=== PATIENT | male | born 1990 | race Caucasian/White ===

== ENCOUNTER 2022-03-27 08:49 | Emergency (ER) | payer MEDICAID, SELFPAY ==
--- NOTE | 2022-03-27 08:56 | ED.GENADULT ---
HPI - General Adult General Chief complaint: Upper Respiratory Symptoms Stated complaint: coughing, chest congestion Time Seen by Provider: 03/27/22 08:55 Source: patient Mode of arrival: ambulatory Limitations: no limitations History of Present Illness HPI narrative: Patient is a 31 year old assigned male at with a history of asthma presenting to the emergency department today with a cough and congestion over the last few days. Patient states that over the last few days he has had to use his inhaler and he has had a cough and mild nasal congestion. Patient denies any dizziness, lightheadedness, abdominal pain, nausea, vomiting, fever, chills, blurry vision, double vision, loss of vision, chest pain, difficulty breathing, shortness of breath, back pain, night sweats, pain with urination, increased urinary frequency, increased urinary urgency, blood in his urine or stool, syncope or a near syncopal episode, recent trauma or falls, bowel incontinence, bladder incontinence, bowel retention, bladder retention, or any other complaints at this time. Onset (ago): day(s) Severity: mild Severity scale (1-10): 2 Relieving factors: none Exacerbating factors: none Associated symptoms: cough Treatments prior to arrival: none Related Data Previous Rx's Medication Instructions Recorded albuterol sulfate 90 mcg/actuation 1 inh inhalation QID PRN shortness 03/27/22 aerosol inhaler (Ventolin HFA) of breath or wheezing #8.5 grams benzonatate 100 mg capsule 100 mg PO BID PRN cough 7 days #14 03/27/22 caps prednisone 20 mg tablet 20 mg PO DAILY 7 days #7 tabs 03/27/22 Allergies Allergy/AdvReac Type Severity Reaction Status Date / Time shellfish derived Allergy Anaphylaxis Verified 03/27/22 08:59 Review of Systems Constitutional: Constitutional: Reports no additional constitutional complaints, Denies chills, Denies fever(s) and Denies night sweats Eyes: Eyes: Reports no additional eye complaints, Denies blurry vision, Denies change in vision, Denies diplopia, Denies eye discharge, Denies loss of vision and Denies eye pain ENT: Denies dizziness and Reports nasal congestion Cardiovascular: Cardiovascular: Reports no additional cardiovascular complaints, Denies chest pain, Denies lightheadedness, Denies Loss of Consciousness and Denies dyspnea Respiratory: Respiratory: Reports no additional respiratory complaints, Reports cough and Denies dyspnea Gastrointestinal: Gastrointestinal: Reports no additional gastrointestinal complaints, Denies abdominal pain, Denies melena, Denies hematochezia, Denies change in bowel habits and Denies change in stool character Genitourinary: Genitourinary: Reports no additional male genitourinary complaints, Denies hematuria, Denies oliguria, Denies difficulty urinating, Denies dysuria, Denies urinary frequency, Denies urinary hesitancy, Denies urinary incontinence and Denies urinary urgency Musculoskeletal: Musculoskeletal: Reports no additional musculoskeletal complaints, Denies numbness and Denies tingling Neurologic: Denies dizziness, Denies loss of vision, Denies numbness and Denies tingling Psychiatric: Psychiatric: Reports no additional psychiatric complaints Endocrine: Endocrine: Reports no additional endocrine complaints Hematologic/Lymphatic: Hematologic/Lymphatic: Reports no additional hematologic/lymphatic complaints Allergic/Immunologic: Allergic/Immunologic: Reports no additional allergic/immunologic complaints PMFSH Past Medical History Attestation statement: The following information was validated with the patient. Source: old records reviewed and nursing notes reviewed Social History Social History Advance Directives: No Advance Directives Information Provided: No Physical Exam ED Vital Signs: Vital Signs - 24 hr 03/27/22 09:02 Temperature 98.2 F Pulse Rate 90 Respiratory Rate 18 Blood Pressure 143/89 H Pulse Oximetry 97 Oxygen Delivery Method Room Air BMI result Body Mass Index 43.9 Const General: cooperative, no acute distress, alert and awake Nutritional Appearance: well nourished Orientation/consciousness: patient oriented x3 Limitations: no limitations [facility] Head: Yes normal to inspection and Yes atraumatic Ears: hearing grossly normal bilaterally and external ears normal General nose exam: Normal external nose present, no nasal discharge noted and no epistaxis Face and sinus: Yes normal facial exam, No abrasion and No laceration Mouth: Normal oral and palatal mucosa present, no drooling and no muffled voice Eyes General: appearance normal, both eyes and all related structures Periorbital: periorbital findings normal Eyelids: Yes eyelids normal Conjunctivae: conjunctivae normal Pupils: Equal, round and reactive pupils present EOM: EOMs intact bilaterally Neck Neck: Yes normal visual inspection, Yes full ROM and Yes no lymphadenopathy Chest Chest palpation & inspection: normal inspection of the chest Resp Effort & Inspection: normal respiratory effort and able to speak in complete sentences Auscultation: clear to auscultation bilaterally Cardio Rate: regular rate Rhythm: regular rhythm GI Inspection: Yes normal to inspection Neuro General: patient oriented x3 and moves all extremities Cranial nerves: Yes Equal, round and reactive pupils present Cognition (Neuro): normal cognition Motor exam (neuro): 5/5 motor strength present throughout Sensory Exam: Normal double simultaneous stimulation for sensation Coordination: [id number] test normal Extrem General: Yes normal to inspection, Yes full ROM and Yes capillary refill normal Psych Appearance: grossly normal Mental Status: mental status grossly normal Affect: normal affect Attitude: cooperative Thought process: Normal thought process present Thought content: Normal thought content present Insight: Good insight present (Psych) Medical Decision Making Medical Decision Making [facility] Narrative: Patient is a 31 year old assigned male at with a history of asthma presenting to the emergency department today with a cough. Patient's physical exam was unremarkable. Patient's COVID and Influenza swabs were negative. I explained my physical exam findings as well as all test results to the patient. I answered all questions asked by the patient. I stressed the importance of the patient taking his medication as prescribed. I stressed the importance of the patient following up with his primary care provider. I stressed the importance of the patient returning to the emergency department immediately if his symptoms were to worsen or if he were to develop any dizziness, shortness of breath, difficulty breathing, chest pain, blurry vision, loss of vision, nausea, vomiting, abdominal pain, fever, chills, back pain, or any other complaints. Patient verbalized agreement and understanding with this treatment plan and discharge. Differential Diagnosis Differential Diagnoses: The differential diagnosis associated with the presentation includes cough, viral illness Lab Data [facility] Lab Attestation statement: I reviewed the patient's lab results. Labs: Lab Results 03/27/22 03/27/22 Range/Units 09:31 09:31 COVID-19 ([facility]) Negative (Negative) COVID-19 Clin Com See Note Influenza Type A ([facility]) Negative (Negative) Influenza Type B ([facility]) Negative (Negative) Influenza A & B Note See Note Discharge Plan Discharge Clinical Impression: Upper respiratory infection Patient Disposition: Home, Self-Care Instructions: Upper Respiratory Infection (ED) Additional Instructions: Follow up with your primary care provider. Return to the emergency department immediately if your symptoms worsen or if you develop any dizziness, shortness of breath, difficulty breathing, chest pain, blurry vision, loss of vision, nausea, vomiting, abdominal pain, fever, chills, back pain, or any other complaints. Prescriptions: New benzonatate 100 mg capsule 100 mg PO BID PRN (Reason: cough) 7 Days Qty: 14 0RF prednisone 20 mg tablet 20 mg PO DAILY 7 Days Qty: 7 0RF albuterol sulfate [Ventolin HFA] 90 mcg/actuation HFA aerosol inhaler 1 inh inhalation QID PRN (Reason: shortness of breath or wheezing) Qty: 8.5 0RF Referrals: [facility] Family Medicine [Provider Group] (Call to establish and follow up with a primary care provider. If you already have a primary care provider, please follow up with them. ) [facility] [Provider Group] (Call to establish and follow up with a primary care provider. If you already have a primary care provider, please follow up with them. ) [facility] [Provider Group] (Call to establish and follow up with a primary care provider. If you already have a primary care provider, please follow up with them. ) Stand Alone Forms: Work/School Release Interventions: ED Discharge Assessment Last Done: 03/27/22 10:49 Discharge Date/Time: 03/27/22 10:49 Print Language: Nauruan
[2022-03-27 09:02] VITALS: BP 143/89; PULSE 90; RESP 18; TEMP 36.8; O2SAT 97; BMI 43.9
[2022-03-27 10:07] LABS: IDNOW Serial# BCCEAD1C; Influenza A Negative (Negative); Influenza B2 Negative (Negative)
[2022-03-27 10:28] LABS: COVID-19 Test Negative (Negative); IDNOW Serial# 55D5AD1C
== END 2022-03-27 10:49 | disposition home or self-care (01) ==
PROVIDERS: Physician Assistant Medical; Emergency Provider Emergency Medicine
DX: J06.9 Acute upper respiratory infection, unspecified (principal); Z20.822 Contact with and (suspected) exposure to COVID-19; J45.909 Unspecified asthma, uncomplicated
CPT/HCPCS: 87502; 87635; 99282; 99283

== ENCOUNTER 2022-09-23 04:17 | Emergency (ER) | payer OTHER, SELFPAY ==
[2022-09-23 04:19] VITALS: BP 149/78; PULSE 78; RESP 18; TEMP 36.4; O2SAT 96; BMI 46.6
[2022-09-23] MEDS: Lidocaine HCl 1 % MPF 5 ML VIAL SUBCUT (06:03)
--- NOTE | 2022-09-23 06:13 | ED.GENADULT ---
HPI - General Adult General Chief complaint: Wound/Laceration Stated complaint: Work Inj/Small hand lac Time Seen by Provider: 09/23/22 05:35 Source: patient Mode of arrival: ambulatory Limitations: no limitations History of Present Illness HPI narrative: 32-year-old male came in for evaluation of a splinter in the left palm while he was working. A wooden splinter penetrated the left hand patient was able to extract piece of it with imbedded piece in the palm. Related Data Previous Rx's Medication Instructions Recorded albuterol sulfate 90 mcg/actuation 1 inh inhalation QID PRN shortness 03/27/22 aerosol inhaler (Ventolin HFA) of breath or wheezing #8.5 grams benzonatate 100 mg capsule 100 mg PO BID PRN cough 7 days #14 03/27/22 caps prednisone 20 mg tablet 20 mg PO DAILY 7 days #7 tabs 03/27/22 Allergies Allergy/AdvReac Type Severity Reaction Status Date / Time shellfish derived Allergy Anaphylaxis Verified 03/27/22 08:59 Review of Systems Review of Systems: All other systems are reviewed and are negative Constitutional: Reports as per HPI and Reports no additional constitutional complaints Eyes: Reports as per HPI and Reports no additional eye complaints Reports system reviewed and no additional complaints, except as documented Cardiovascular: Reports as per HPI and Reports no additional cardiovascular complaints Respiratory: Reports as per HPI and Reports no additional respiratory complaints Gastrointestinal: Reports as per HPI and Reports no additional gastrointestinal complaints Genitourinary: Reports no additional female genitourinary complaints Musculoskeletal: Reports no additional musculoskeletal complaints Skin/Breast: Reports system reviewed and no additional complaints, except as docu Psychiatric: Reports no additional psychiatric complaints Endocrine: Reports no additional endocrine complaints Hematologic/Lymphatic: Reports no additional hematologic/lymphatic complaints Allergic/Immunologic: Reports no additional allergic/immunologic complaints Reports system reviewed and no additional complaints, except as documented and Reports Abnormal speech present [facility] Social History Social History Advance Directives: No Advance Directives Information Provided: Yes Physical Exam ED Vital Signs: Vital Signs - 24 hr 09/23/22 04:19 Temperature 97.6 F Pulse Rate 78 Respiratory Rate 18 Blood Pressure 149/78 H Pulse Oximetry 96 Oxygen Delivery Method Room Air BMI result Body Mass Index 46.6 Vital signs have been reviewed as appeared to be correct. Blood pressure normal. Heart rate normal. Respiration rate normal. Temperature normal. Oxygen saturation normal. Appearance: Alert. Oriented X3. No acute distress. Head: Normal external exam. Normocephalic. Atraumatic. No Phillip signs noted. No raccoon eyes noted Eyes: PERRLA. EOMI. Conjunctiva and sclera normal. Eyelids normal. ENT: TM's Normal. Pharynx normal. Uvula midline. Moist mucous membranes. No trismus noted. No drooling noted. No muffled voice noted. Neck: Normal inspection. Neck supple. FROM. No adenopathy. Thyroid Normal. No meningeal signs. No neck mass noted. CVS: Normal heart rate and rhythm. Heart sound normal. No murmurs noted. Pulses normal throughout. Respiratory: No respiratory distress. Painless inspiration. Breath sounds normal. No wheezes/rales/rhonchi noted. Chest nontender. No accessory muscle usage noted or decreased air movement noted. Abdomen: Soft and nontender. Bowel sounds normal in all 4 quadrants. No distention noted. No organomegaly noted. No visible injury noted. Back: No CVA tenderness. Full range of motion noted. Skin: Skin warm and dry. Normal skin color. Normal skin turgor. No rashes/lesions/lacerations noted. Extremities: Left hand palm: 1 cm long splinter embedded in the palmar aspect of the left hand. Neuro: Oriented X 3. Cranial nerve exam: II-XII are grossly intact No motor deficit. No sensory deficit. Reflexes normal. Medications Administered Discontinued Medications Generic Name Dose Route Start Last Admin Trade Name Freq PRN Reason Stop Dose Admin Lidocaine HCl 5 ml 09/23/22 05:50 09/23/22 06:03 Lidocaine Hcl 1 % Mpf 5 Ml Vial SUBCUT 09/23/22 05:51 5 ml ONCE ONE Administration Procedures Foreign Body Removal Time Out Performed: yes Site: left and hand Description of foreign body: other (Splinter) Technique: incision made to facilitate removal Confirmed by:: direct visualization Complications: none Post-procedure exam: awake, alert Neurovascular: normal distal pulse Medical Decision Making Differential Diagnosis Differential Diagnoses: The differential diagnosis associated with the presentation includes (Left hand foreign body, infection.) Admission/Observation Consideration of admission/observation: Escalation of care including admission/observation considered Discharge Plan Discharge Clinical Impression: Embedded wood splinter Patient Disposition: Home, Self-Care Instructions: Soft Tissue Foreign Body (ED) Prescriptions: No Action benzonatate 100 mg capsule 100 mg PO BID PRN (Reason: cough) 7 Days Qty: 14 0RF prednisone 20 mg tablet 20 mg PO DAILY 7 Days Qty: 7 0RF albuterol sulfate [Ventolin HFA] 90 mcg/actuation HFA aerosol inhaler 1 inh inhalation QID PRN (Reason: shortness of breath or wheezing) Qty: 8.5 0RF
[2022-09-23] MEDS: Bacitracin Oint 0.9 GM PACKET 1 APPL TOPICAL (06:17)
--- NOTE | 2022-09-23 06:23 | MHC.EDTECH ---
pt wound cleaned and irrigated, bacitracin applied and wound wrapped.
== END 2022-09-23 06:36 | disposition home or self-care (01) ==
PROVIDERS: Emergency Provider Emergency Medicine
DX: S61.442A Puncture wound with foreign body of left hand, initial encounter (principal); W45.8XXA Other foreign body or object entering through skin, initial encounter; Y93.9 Activity, unspecified; Y92.59 Other trade areas as the place of occurrence of the external cause; Y99.0 Civilian activity done for income or pay
CPT/HCPCS: 10120; 99282; 99284

== ENCOUNTER 2022-12-28 23:43 | Emergency (ER) | payer OTHER, SELFPAY ==
--- NOTE | 2022-12-28 | ECG_ITS ---
Test Reason : CP Blood Pressure : / mmHG Vent. Rate : 084 BPM Atrial Rate : 084 BPM P-R Int : 130 ms QRS Dur : 110 ms QT Int : 366 ms P-R-T Axes : 041 046 026 degrees QTc Int : 432 ms Normal sinus rhythm RSR' or QR pattern in V1 suggests right ventricular conduction delay Otherwise normal ECG No previous ECGs available Referred By: Generic ED Physician Electronically Signed By:MARIE JEAN MD
[2022-12-28 23:54] VITALS: BP 140/90; PULSE 84; RESP 18; O2SAT 98; BMI 48.4
[2022-12-28 23:56] VITALS: PULSE 87
[2022-12-28 23:58] VITALS: BP 139/85; PULSE 97; RESP 16; TEMP 36.7; O2SAT 97
--- NOTE | 2022-12-28 23:58 | ED.CHESTPAIN ---
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 With localized in mid chest sharp in character with no radiation no shortness of breath nonreproducible no diaphoresis no nausea no vomiting patient never had similar pain in the past no history of anxiety patient father had history of coronary disease at age of 65 patient denies any cocaine abuse Related Data Previous Rx's Medication Instructions Recorded albuterol sulfate 90 mcg/actuation 1 inh inhalation QID PRN shortness 03/27/22 aerosol inhaler (Ventolin HFA) of breath or wheezing #8.5 grams benzonatate 100 mg capsule 100 mg PO BID PRN cough 7 days #14 03/27/22 caps prednisone 20 mg tablet 20 mg PO DAILY 7 days #7 tabs 03/27/22 ibuprofen 600 mg tablet 600 mg PO Q6H PRN fever or pain 12/29/22 #30 tabs Allergies Allergy/AdvReac Type Severity Reaction Status Date / Time shellfish derived Allergy Anaphylaxis Verified 03/27/22 08:59 Review of Systems Review of Systems: Yes all other systems are reviewed and are negative [facility] Social History Social History Smoked in Last 30 Days: No Use of substances other than those prescribed or required for medical reasons: No Advance Directives: No Advance Directives Information Provided: No Physical Exam Vital Signs: Vital Signs: Last Vital Signs Temp 98.1 F 12/28/22 23:58 Pulse 97 12/28/22 23:58 Resp 16 12/28/22 23:58 BP 139/85 12/28/22 23:58 Pulse Ox 97 12/28/22 23:58 O2 Del Method Room Air 12/28/22 23:58 BMI result Body Mass Index 48.4 Appearance: Alert. Oriented X3. No acute distress. Eyes: PERRLA, ENT: Pharynx normal. Oral Mucosa moist Neck: Normal inspection. Neck supple. CVS: Normal heart rate and rhythm. Pulses normal. Respiratory: No respiratory distress. Equal air entry bilateral, no wheezing/rales/rhonchi Abdomen: Soft and nontender. Bowel sounds are present, no mass palpable, no CVA tenderness Skin: Skin warm and dry. Normal skin color. Normal skin turgor. Extremities: No lower extremity edema. No calf tenderness Neuro: Oriented X 3. No motor deficit. No sensory deficit.No cerebellar signs , cranial nerves II-XII intact Medical Decision Making Medical Decision Making [facility] Narrative: Atypical chest pain normal cardiogram normal D-dimer normal troponin patient feel comfortable at this time no chest pain discharge patient home heart score is 0 Differential Diagnosis Differential Diagnoses: The differential diagnosis associated with the presentation includes ACS/anxiety/musculoskeletal pain/PE Lab Data [facility] Lab Attestation statement: I reviewed the patient's lab results. 12/29/22 00:12 12/29/22 00:12 Labs: Lab Results 12/29/22 12/29/22 Range/Units 00:12 00:13 WBC 6.9 (4.8-10.8) X10*3/uL RBC 5.79 (4.60-5.80) X10*6/uL Hgb 16.1 (14.0-18.0) g/dl Hct 46.3 (42.0-52.0) % MCV 80.0 (80.0-98.0) fL MCH 27.8 (27.0-33.0) pg MCHC 34.8 (31.0-36.0) g/dl RDW 13.0 (11.0-16.0) % Plt Count 178 (160-400) X10*3/uL MPV 10.3 (9.4-12.4) fL Immature Gran % (Auto) 1.3 H (0.0-0.4) % Neut % (Auto) 54.3 (45-73) % Lymph % (Auto) 33.1 (20-40) % [place] % (Auto) 8.3 (2-11) % Eos % (Auto) 2.6 (0-4) % Baso % (Auto) 0.4 (0-2) % Lymph # (Auto) 2.3 (1.2-4.9) X10*3/uL [place] # (Auto) 0.6 (0.1-1.2) X10*3/uL Eos # (Auto) 0.2 (0.0-0.4) X10*3/uL Baso # (Auto) 0.0 (0.0-0.2) X10*3/uL Abs Immat Gran (auto) 0.09 H (0.00-0.03) X10*3/uL Absolute Neuts (auto) 3.7 (2.0-8.3) x10*3/uL Absolute Nucleated RBC 0.000 (0.0-0.012) X10*3/uL Nucleated RBC % (auto) 0.0 (0.0-0.2) /100WBC PT 11.1 (11.1-13.3) SEC INR 0.9 (0.9-1.1) D-Dimer High Sensitivty < 150 NG/ML Sodium 139 (135-145) mmol/L Potassium 3.8 (3.3-5.1) mmol/L Chloride 105 (96-108) mmol/L Carbon Dioxide 22 (22-29) mmol/L Anion Gap 16 (12-20) BUN 16 (9-16) mg/dL Creatinine 0.79 (0.5-1.4) mg/dL Estim Creat Clear Calc 174.4 Estimated GFR > 60 Random Glucose 137 H (60-115) mg/dL Calcium 10.3 H (8.4-10.2) mg/dL Total Bilirubin 0.4 (0.0-1.0) mg/dL AST 27 (5-37) U/L ALT 69 H (0-40) U/L Alkaline Phosphatase 78 (39-117) U/L Troponin I High Sens < 2.7 (<3.5-35.0) ng/L Total Protein 7.3 (6.5-8.0) g/dL Albumin 4.2 (3.5-5.0) g/dL Independent Interpretation I performed an independent interpretation of an: EKG Interpretation: Normal sinus rhythm heart rate 84 beats per minute normal intervals axis no acute ST change and no acute ischemia Discharge Plan Discharge Clinical Impression: Atypical chest pain Patient Disposition: Home, Self-Care Instructions: Chest Pain (ED) Additional Instructions: Your chest pain is likely musculoskeletal pain A blood workup and cardiograms are normal Take ibuprofen for pain Prescriptions: New ibuprofen 600 mg tablet 600 mg PO Q6H PRN (Reason: fever or pain) Qty: 30 0RF No Action benzonatate 100 mg capsule 100 mg PO BID PRN (Reason: cough) 7 Days Qty: 14 0RF prednisone 20 mg tablet 20 mg PO DAILY 7 Days Qty: 7 0RF albuterol sulfate [Ventolin HFA] 90 mcg/actuation HFA aerosol inhaler 1 inh inhalation QID PRN (Reason: shortness of breath or wheezing) Qty: 8.5 0RF Stand Alone Forms: Work/School Release
--- NOTE | 2022-12-28 23:59 | PC.NURSE ---
Pt presents to ED via EMS for chest pain. Pt reporting a pinching pain in his chest started around 2300. Pt has taken the last week off of work, did not travel, and today was his first day back. Pt has hx of asthma and has been using his inhaler with no relief. Pt denies SOB, numbness or tingling in hands or feet, or nausea/vomiting. Pt is A&Ox4, GCS 15, with warm, dry skin. Pt is on the quality assurance monitor final, EKG obtained, MD at bedside.
[2022-12-29 00:18] LABS: MANUAL DIFF FLAG NO
[2022-12-29 00:19] LABS: Basophils Percent Auto 0.4 % (0-2); Eosinophils Absolute Auto 0.2 X10*3/uL (0.0-0.4); Eosinophils Percent Auto 2.6 % (0-4); Hematocrit 46.3 % (42.0-52.0); Hemoglobin 16.1 g/dl (14.0-18.0); Imm Gran Abs Auto 0.09 X10*3/uL (0.00-0.03); Imm Gran Pct Auto 1.3 % (0.0-0.4); Lymphocytes Absolute Auto 2.3 X10*3/uL (1.2-4.9); Lymphocytes Percent Auto 33.1 % (20-40); Mean Corpuscular HGB Conc 34.8 g/dl (31.0-36.0); Mean Corpuscular Hemoglobin 27.8 pg (27.0-33.0); Mean Platelet Volume 10.3 fL (9.4-12.4); Monocytes Absolute Auto 0.6 X10*3/uL (0.1-1.2); Monocytes Percent Auto 8.3 % (2-11); Neutrophils Absolute Auto 3.7 x10*3/uL (2.0-8.3); Neutrophils Percent Auto 54.3 % (45-73); Platelet Count 178 X10*3/uL (160-400); Red Blood Count 5.79 X10*6/uL (4.60-5.80); White Blood Count 6.9 X10*3/uL (4.8-10.8)
[2022-12-29 00:26] LABS: INTERNATIONAL NORM RATIO 0.9 (0.9-1.1); Prothrombin Time 11.1 SEC (11.1-13.3)
[2022-12-29 00:31] LABS: D Dimer High Sensitivity < 150 NG/ML
[2022-12-29 00:38] LABS: Alanine Aminotransferase 69 U/L (0-40); Albumin Level 4.2 g/dL (3.5-5.0); Alkaline Phosphatase 78 U/L (39-117); Anion Gap 16 (12-20); Aspartate Amino Transferase 27 U/L (5-37); Bilirubin Total 0.4 mg/dL (0.0-1.0); Blood Urea Nitrogen 16 mg/dL (9-16); Calcium 10.3 mg/dL (8.4-10.2); Carbon Dioxide 22 mmol/L (22-29); Chloride 105 mmol/L (96-108); Creatinine Clr Calc Pharmacy 174.4; Estimated Glomerular Filt Rate > 60; Glucose Random 137 mg/dL (60-115); Potassium 3.8 mmol/L (3.3-5.1); Sodium 139 mmol/L (135-145); Total Protein 7.3 g/dL (6.5-8.0)
[2022-12-29 00:46] LABS: Troponin-I High Sensitivity < 2.7 ng/L (<3.5-35.0)
== END 2022-12-29 01:09 | disposition home or self-care (01) ==
PROVIDERS: Emergency Provider Internal Medicine
DX: R07.89 Other chest pain (principal); Z79.899 Other long term (current) drug therapy
CPT/HCPCS: 36415; 80053; 84484; 85025; 85379; 85610; 93005; 99284; 99285

== ENCOUNTER 2023-01-25 14:14 | Emergency (ER) | payer OTHER, SELFPAY ==
--- NOTE | ~2023-01-25 | XR_ITS ---
EXAMINATION: XR CHEST CLINICAL INFORMATION: Cough. COMPARISON: None available. TECHNIQUE: 2 views of the chest were obtained. FINDINGS: No significant abnormality is noted involving the heart, lungs, mediastinum, bony thorax or soft tissues. XR/XR chest 2V IMPRESSION: Unremarkable chest examination.
--- NOTE | 2023-01-25 14:29 | ECG_ITS ---
Test Reason : CHEST PAIN Blood Pressure : / mmHG Vent. Rate : 091 BPM Atrial Rate : 091 BPM P-R Int : 126 ms QRS Dur : 100 ms QT Int : 352 ms P-R-T Axes : 054 056 037 degrees QTc Int : 432 ms Normal sinus rhythm Normal ECG When compared with ECG of 28-DEC-2022 23:52, No significant change was found Referred By: Generic ED Physician Electronically Signed By:MARIE JEAN MD
[2023-01-25 14:45] VITALS: BP 152/78; PULSE 96; RESP 20; TEMP 36.8; O2SAT 96; BMI 47.9
[2023-01-25 15:49] LABS: Influenza A PCR NEGATIVE (Negative); Influenza B PCR NEGATIVE (Negative); Resp Syncy Virus RNA Qual PCR NEGATIVE (Negative); SARS COV2 PCR INHOUSE NEGATIVE (Negative)
--- NOTE | 2023-01-25 17:13 | ED.URI ---
HPI - URI/Sore Throat General Chief Complaint: Upper Respiratory Symptoms Stated Complaint: chest pain Time Seen by Provider: 01/25/23 17:10 Source: patient, RN notes reviewed and old records reviewed Mode of arrival: ambulatory History of Present Illness HPI Narrative: 32-year-old male with a past medical history of asthma presenting to the ED complaining of nonproductive cough x2 weeks w/mild SOB. Reports chest discomfort from coughing. Has been using inhalers without relief. Denies fever, chills, sore throat, recent travel, sick contacts, cigarette smoking, pedal edema MD elicited complaint: cough and nasal congestion Related Data Previous Rx's Medication Instructions Recorded albuterol sulfate 90 mcg/actuation 1 inh inhalation QID PRN shortness 03/27/22 aerosol inhaler (Ventolin HFA) of breath or wheezing #8.5 grams benzonatate 100 mg capsule 100 mg PO BID PRN cough 7 days #14 03/27/22 caps prednisone 20 mg tablet 20 mg PO DAILY 7 days #7 tabs 03/27/22 ibuprofen 600 mg tablet 600 mg PO Q6H PRN fever or pain 12/29/22 #30 tabs benzonatate 100 mg capsule 100 mg PO TID PRN cough #14 caps 01/25/23 prednisone 20 mg tablet 40 mg (2 x 20 mg) PO DAILY 5 days 01/25/23 #10 tabs Allergies Allergy/AdvReac Type Severity Reaction Status Date / Time shellfish derived Allergy Anaphylaxis Verified 03/27/22 08:59 Review of Systems Review of Systems: Constitutional: No Fever, No Chills ENT/Mouth: No Ear Pain, + Nasal Congestion, No Hoarseness, No sore throat, +Rhinorrhea, No Swallowing Difficulty Cardiovascular: +Chest Pain w/cough, + SOB Respiratory: +Cough, No Sputum, No Wheezing Gastrointestinal: No Nausea, No Vomiting, No Diarrhea, No Constipation, No Abdominal pain Musculoskeletal: No joint pain, No Myalgias, No Joint Swelling Skin: No Skin Lesions, No rash Neuro: No Weakness Yes all other systems are reviewed and are negative Constitutional: Constitutional: Reports as per [facility] Past Medical History Attestation statement: The following information was validated with the patient. Source: old records reviewed Social History Advance Directives: No Advance Directives Information Provided: No Physical Exam Vital Signs: Vital Signs: Last Vital Signs Temp 98.3 F 01/25/23 14:45 Pulse 96 01/25/23 14:45 Resp 20 01/25/23 14:45 BP 152/78 H 01/25/23 14:45 Pulse Ox 96 01/25/23 14:45 O2 Del Method Room Air 01/25/23 14:45 BMI result Body Mass Index 47.9 Const: General: cooperative, healthy appearing and no acute distress Orientation/consciousness: patient oriented x3 Limitations: no limitations HEENT: Head: Yes normal to inspection and Yes atraumatic Ears: hearing grossly normal bilaterally, external ears normal, TM's normal bilaterally and mastoids normal General nose exam: Normal external nose present Face and sinus: Yes normal facial exam Mouth: Normal oral and palatal mucosa present Throat: Yes posterior oropharynx normal, Yes tonsils normal, Yes uvula midline, No peritonsillar mass and No uvula laterally displaced Eyes: General: appearance normal, both eyes and all related structures EOM: EOMs intact bilaterally Neck: Neck: Yes normal visual inspection and Yes no meningeal signs Resp: Effort & Inspection: normal respiratory effort and no respiratory distress Auscultation: clear to auscultation bilaterally, no crackles, no rales, no rhonchi and no wheezes Cardio: Rate: regular rate Heart sounds: S1 normal heart sound present and S2 normal heart sound present GI: Inspection: Yes normal to inspection Palpation (GI): Soft to palpation, nontender, no guarding and not rigid Skin: Rashes: no rashes Wounds: no wounds Neuro: General: patient oriented x3, tone normal and no meningeal signs Cranial nerves: Yes CN's II-XII intact bilaterally Gait exam (Neuro): Normal gait present Extrem: General: Yes normal to inspection and Yes no pedal edema Course Course Course Narrative: -COVID/flu/RSV negative XR chest 2V IMPRESSION: Unremarkable chest examination. Results discussed with patient including worrisome signs and symptoms and strict return precautions, and when to return to the emergency department. They verbalized understanding and feel safe for discharge at this time. Medical Decision Making Medical Decision Making MDM Narrative: 32-year-old male with a past medical history of asthma presenting to the ED complaining of nonproductive cough x2 weeks w/mild SOB. On exam vital signs stable, NAD, nontoxic appearing, lungs CTA, exam otherwise unremarkable. Concern for bronchitis versus pneumonia versus asthma exacerbation. Lower suspicion for ACS/PE or DVT Plan: EKG, CXR, viral testing Please refer to course for remaining clinical decision making, interpretation of labs/imaging results, and discussions with consultants and/or family members. Differential Diagnosis Differential Diagnoses: The differential diagnosis associated with the presentation includes As above Lab Data MDM Lab Attestation statement: I reviewed the patient's lab results. Labs: Lab Results 01/25/23 Range/Units 15:00 Influenza Type A (PCR) NEGATIVE (Negative) Influenza Type B (PCR) NEGATIVE (Negative) RSV RNA Qual (PCR) NEGATIVE (Negative) SARS-CoV-2 RNA (RT-PCR) NEGATIVE (Negative) Independent Interpretation I performed an independent interpretation of an: EKG (My interpretation EKG normal sinus rhythm rate of 91. QRS 100. QTC 432. No significant change when compared to prior) Radiology Impression Discussion of test interpretation with radiology: I have reviewed the radiologist's reading. External Record Review External record reviewed: Inpatient record, Office record, Outpatient record, Prior outpatient labs, Prior outpatient radiology, Primary care record and Outside ED record Tests considered The following testing was considered but not selected: As above Discharge Plan Discharge Clinical Impression: Bronchitis Patient Disposition: Home, Self-Care Instructions: Acute Bronchitis (ED) Additional Instructions: You tested negative for COVID, flu, RSV. your x-ray is unremarkable Please continue to use inhalers at home tessalon Perles are for cough. Prednisone as a steroid which will help clear you out Follow-up with your doctor If symptoms persist or worsen return to the ED Prescriptions: New prednisone 20 mg tablet 40 mg PO DAILY 5 Days Qty: 10 0RF benzonatate 100 mg capsule 100 mg PO TID PRN (Reason: cough) Qty: 14 0RF No Action benzonatate 100 mg capsule 100 mg PO BID PRN (Reason: cough) 7 Days Qty: 14 0RF prednisone 20 mg tablet 20 mg PO DAILY 7 Days Qty: 7 0RF albuterol sulfate [Ventolin HFA] 90 mcg/actuation HFA aerosol inhaler 1 inh inhalation QID PRN (Reason: shortness of breath or wheezing) Qty: 8.5 0RF ibuprofen 600 mg tablet 600 mg PO Q6H PRN (Reason: fever or pain) Qty: 30 0RF Referrals: Physician,Unknown J [Primary Care Provider] - 3 days Interventions: ED Discharge Assessment Last Done: 01/25/23 17:45 Discharge Date/Time: 01/25/23 17:46
== END 2023-01-25 17:46 | disposition home or self-care (01) ==
PROVIDERS: Physician Assistant Medical; Emergency Provider Emergency Medicine Emergency Medical Services
DX: J40 Bronchitis, not specified as acute or chronic (principal); Z20.822 Contact with and (suspected) exposure to COVID-19; Z20.828 Contact with and (suspected) exposure to other viral communicable diseases
CPT/HCPCS: 0241U; 71046; 93005; 99283

== ENCOUNTER 2023-01-29 03:29 | Emergency (ER) | payer OTHER, SELFPAY ==
--- NOTE | ~2023-01-29 | XR_ITS ---
EXAMINATION: XR CHEST CLINICAL INFORMATION: Cough COMPARISON: 01/25/2023 TECHNIQUE: Frontal view of the chest was obtained. FINDINGS: The lungs are clear with no focal consolidation. No evidence of pneumothorax, pulmonary edema, or pleural effusions. The cardiomediastinal silhouette is unremarkable. No acute osseous findings. XR/XR chest 1V IMPRESSION: No acute cardiopulmonary findings.
[2023-01-29 03:52] VITALS: PULSE 98; RESP 18; TEMP 36.9; O2SAT 97; BMI 48.1
[2023-01-29 03:55] VITALS: BP 165/96; PULSE 96; RESP 18; TEMP 36.9; O2SAT 95
--- NOTE | 2023-01-29 04:43 | ED.URI ---
HPI - URI/Sore Throat General Chief Complaint: Upper Respiratory Symptoms Stated Complaint: flu like symptoms Time Seen by Provider: 01/29/23 04:33 Source: patient Mode of arrival: ambulatory Limitations: no limitations History of Present Illness HPI Narrative: Patient history of asthma with frequent seasonal bronchitis was seen here 2 weeks ago with same symptoms comes here with cough inspite of using inhaler and taking Teslon no fever no chills patient had chest x-ray before was negative and today also was negative COVID flu influenza negative Related Data Previous Rx's Medication Instructions Recorded albuterol sulfate 90 mcg/actuation 1 inh inhalation QID PRN shortness 03/27/22 aerosol inhaler (Ventolin HFA) of breath or wheezing #8.5 grams benzonatate 100 mg capsule 100 mg PO BID PRN cough 7 days #14 03/27/22 caps prednisone 20 mg tablet 20 mg PO DAILY 7 days #7 tabs 03/27/22 ibuprofen 600 mg tablet 600 mg PO Q6H PRN fever or pain 12/29/22 #30 tabs benzonatate 100 mg capsule 100 mg PO TID PRN cough #14 caps 01/25/23 prednisone 20 mg tablet 40 mg (2 x 20 mg) PO DAILY 5 days 01/25/23 #10 tabs cefuroxime axetil 500 mg tablet 500 mg PO BID 10 days #20 tabs 01/29/23 codeine 10 mg-guaifenesin 100 mg/5 10 ml PO Q6H PRN cough #237 mL 01/29/23 mL oral liquid prednisone 20 mg tablet 40 mg (2 x 20 mg) PO DAILY #10 tabs 01/29/23 Allergies Allergy/AdvReac Type Severity Reaction Status Date / Time shellfish derived Allergy Anaphylaxis Verified 03/27/22 08:59 Review of Systems Review of Systems: Yes all other systems are reviewed and are negative PMFSH Social History Social History Advance Directives: No Advance Directives Information Provided: No Physical Exam Vital Signs: Vital Signs: Last Vital Signs Temp 98.4 F 01/29/23 03:55 Pulse 96 01/29/23 03:55 Resp 18 01/29/23 03:55 BP 165/96 H 01/29/23 03:55 Pulse Ox 95 01/29/23 03:55 O2 Del Method Room Air 01/29/23 03:55 BMI result Body Mass Index 48.1 Appearance: Alert. Oriented X3. No acute distress. ENT: Pharynx normal. Oral Mucosa moist Neck: Normal inspection. Neck supple. [place] CVS: Normal heart rate and rhythm. Pulses normal. Respiratory: No respiratory distress. Equal air entry bilateral, prolonged expiration Abdomen: Soft and nontender. Skin: Skin warm and dry. Normal skin color. Normal skin turgor. Extremities: No lower extremity edema. No calf tenderness Medications Administered Discontinued Medications Generic Name Dose Route Start Last Admin Trade Name Freq PRN Reason Stop Dose Admin Cefuroxime Axetil 500 mg 01/29/23 04:42 01/29/23 04:50 Cefuroxime Axetil 500 Mg Tablet PO 01/29/23 04:43 500 mg ONCE ONE Administration Dexamethasone 10 mg 01/29/23 04:42 01/29/23 04:50 Dexamethasone 2 Mg Tablet PO 01/29/23 04:43 10 mg ONCE ONE Administration Guaifenesin/Codeine Phosphate 10 ml 01/29/23 04:42 01/29/23 04:50 Guaifen/Codeine Sf 200/20/10ml 10 Ml Liquid PO 01/29/23 04:43 10 ml ONCE ONE Administration Medical Decision Making Medical Decision Making [facility] Narrative: Patient recurrent bronchitis has cat at home likely the cause with history of asthma will discharge patient cough drops patient chest x-ray is negative Differential Diagnosis Differential Diagnoses: The differential diagnosis associated with the presentation includes As above Discharge Plan Discharge Clinical Impression: Bronchitis Patient Disposition: Home, Self-Care Instructions: Acute Bronchitis (ED) Additional Instructions: Drink plenty of fluid Take prednisone course continues nebulizing treatment Cough drops as prescribed Antibiotic as prescribed History of a from Cats Follow-up with PCP/lung specialist Prescriptions: New prednisone 20 mg tablet 40 mg PO DAILY Qty: 10 0RF cefuroxime axetil 500 mg tablet 500 mg PO BID 10 Days Qty: 20 0RF codeine-guaifenesin 10-100 mg/5 mL liquid 10 ml PO Q6H PRN (Reason: cough) Qty: 237 0RF No Action benzonatate 100 mg capsule 100 mg PO BID PRN (Reason: cough) 7 Days Qty: 14 0RF prednisone 20 mg tablet 20 mg PO DAILY 7 Days Qty: 7 0RF albuterol sulfate [Ventolin HFA] 90 mcg/actuation HFA aerosol inhaler 1 inh inhalation QID PRN (Reason: shortness of breath or wheezing) Qty: 8.5 0RF ibuprofen 600 mg tablet 600 mg PO Q6H PRN (Reason: fever or pain) Qty: 30 0RF prednisone 20 mg tablet 40 mg PO DAILY 5 Days Qty: 10 0RF benzonatate 100 mg capsule 100 mg PO TID PRN (Reason: cough) Qty: 14 0RF Interventions: ED Discharge Assessment Last Done: 01/29/23 04:55 Discharge Date/Time: 01/29/23 05:00
[2023-01-29] MEDS: dexAMETHasone 2 MG TABLET 10 MG PO (04:50)
[2023-01-29] MEDS: cefuroxime axetiL 500 MG TABLET PO (04:50)
[2023-01-29] MEDS: guaiFEN/Codeine SF 200/20/10ML 10 ML LIQUID PO (04:50)
== END 2023-01-29 05:00 | disposition home or self-care (01) ==
LOC: HO.ED 04:54
PROVIDERS: Emergency Provider Internal Medicine
DX: J40 Bronchitis, not specified as acute or chronic (principal); R05.9 Cough, unspecified
CPT/HCPCS: 71045; 99283; 99284; J8540

== ENCOUNTER → 2023-02-17 09:04 | Outpatient (BNVA) | payer SELFPAY | PROVIDERS: Visit Provider Physician Assistant Medical ==

== ENCOUNTER 2023-07-23 05:33 | Emergency (ER) | payer OTHER, SELFPAY ==
--- NOTE | ~2023-07-23 | XR_ITS ---
EXAMINATION: XR CHEST CLINICAL INFORMATION: Chest pain COMPARISON: Chest x-ray on 01/29/2023 TECHNIQUE: 2 views of the chest were obtained. FINDINGS: vascularity. LUNGS: Lungs are clear. No pneumothorax is seen. BONES: Bony skeleton is intact. XR/XR chest 2V IMPRESSION: Unchanged Normal chest x-ray.
--- NOTE | 2023-07-23 05:34 | ECG_ITS ---
Test Reason : CP Blood Pressure : / mmHG Vent. Rate : 095 BPM Atrial Rate : 095 BPM P-R Int : 120 ms QRS Dur : 104 ms QT Int : 374 ms P-R-T Axes : 048 058 026 degrees QTc Int : 469 ms Normal sinus rhythm Normal ECG When compared with ECG of 25-JAN-2023 14:39, No significant change was found Referred By: Generic ED Physician Electronically Signed By:SALLY SIMON MD
[2023-07-23 05:40] VITALS: BP 146/101; PULSE 89; RESP 16; TEMP 36.2; O2SAT 97; BMI 44.6
[2023-07-23 05:51] LABS: MANUAL DIFF FLAG NO
[2023-07-23 05:52] LABS: Basophils Percent Auto 0.4 % (0-2); Eosinophils Absolute Auto 0.2 X10*3/uL (0.0-0.4); Eosinophils Percent Auto 2.6 % (0-4); Hematocrit 46.8 % (42.0-52.0); Hemoglobin 16.6 g/dl (14.0-18.0); Imm Gran Abs Auto 0.15 X10*3/uL (0.00-0.03); Imm Gran Pct Auto 1.9 % (0.0-0.4); Lymphocytes Absolute Auto 2.8 X10*3/uL (1.2-4.9); Lymphocytes Percent Auto 35.9 % (20-40); Mean Corpuscular HGB Conc 35.5 g/dl (31.0-36.0); Mean Corpuscular Hemoglobin 28.2 pg (27.0-33.0); Mean Corpuscular Volume 79.6 fL (80.0-98.0); Mean Platelet Volume 10.1 fL (9.4-12.4); Monocytes Absolute Auto 0.8 X10*3/uL (0.1-1.2); Monocytes Percent Auto 10.1 % (2-11); Neutrophils Absolute Auto 3.8 x10*3/uL (2.0-8.3); Neutrophils Percent Auto 49.1 % (45-73); Platelet Count 196 X10*3/uL (160-400); Red Blood Count 5.88 X10*6/uL (4.60-5.80); Red Cell Distribution Width 12.9 % (11.0-16.0); White Blood Count 7.8 X10*3/uL (4.8-10.8)
[2023-07-23 06:10] LABS: Anion Gap 17 (12-20); Blood Urea Nitrogen 11 mg/dL (9-16); Carbon Dioxide 24 mmol/L (22-29); Chloride 103 mmol/L (96-108); Creatinine Clr Calc Pharmacy 173.5; Estimated Glomerular Filt Rate > 60; Glucose Random 113 mg/dL (60-115); Potassium 4.2 mmol/L (3.3-5.1); Sodium 140 mmol/L (135-145)
[2023-07-23 06:17] LABS: Troponin-I High Sensitivity < 2.7 ng/L (<3.5-35.0)
--- NOTE | 2023-07-23 10:10 | ED_ITS ---
HPI - Chest Pain General Chief Complaint: Chest Pain Stated Complaint: chest pain x 3 days Time Seen by Provider: 07/23/23 09:49 Source: patient and family Mode of arrival: ambulatory Limitations: no limitations History of Present Illness ED Provider: Dr. Shayan DIAZ complaint: chest pain Onset (ago): week(s) Timing of current episode: episodic Prior episodes: Yes Onset: during rest Severity: mild Quality: other (pinching) Risk Factors Coronary artery disease risk factors: none Related Data Previous Rx's ?Medication ?Instructions ?Recorded albuterol sulfate 90 mcg/actuation 1 inh inhalation QID PRN shortness 03/27/22 aerosol inhaler (Ventolin HFA) of breath or wheezing #8.5 grams benzonatate 100 mg capsule 100 mg PO BID PRN cough 7 days #14 03/27/22 caps prednisone 20 mg tablet 20 mg PO DAILY 7 days #7 tabs 03/27/22 ibuprofen 600 mg tablet 600 mg PO Q6H PRN fever or pain 12/29/22 #30 tabs benzonatate 100 mg capsule 100 mg PO TID PRN cough #14 caps 01/25/23 prednisone 20 mg tablet 40 mg (2 x 20 mg) PO DAILY 5 days 01/25/23 #10 tabs cefuroxime axetil 500 mg tablet 500 mg PO BID 10 days #20 tabs 01/29/23 codeine 10 mg-guaifenesin 100 mg/5 10 ml PO Q6H PRN cough #237 mL 01/29/23 mL oral liquid prednisone 20 mg tablet 40 mg (2 x 20 mg) PO DAILY #10 tabs 01/29/23 Allergies Allergy/AdvReac Type Severity Reaction Status Date / Time shellfish derived Allergy Anaphylaxis Verified 07/23/23 05:50 Review of Systems 2 Review of Systems: Yes all other systems are reviewed and are negative Neurologic: Denies Sensory deficit (Neuro) [facility] Social History Social History Advance Directives: No Physical Exam 2 Vital Signs: Vital Signs: Last Vital Signs Temp 97.2 F 07/23/23 05:40 Pulse 89 07/23/23 05:40 Resp 16 07/23/23 05:40 BP 146/101 H 07/23/23 05:40 Pulse Ox 97 07/23/23 05:40 O2 Del Method Room Air 05/22/24 05:40 BMI result Body Mass Index 44.6 Const: Other: obese male in no acute distress Orientation/consciousness: oriented to person and patient oriented x3 L imitations: no limitations HEENT: Head: Yes normal to inspection Ears: external ears normal General nose exam: Normal external nose present Mouth: Normal oral and palatal mucosa present and oropharynx normal Throat: Yes posterior oropharynx normal Eyes: General: appearance normal, both eyes and all related structures Neck: Other: supple Neck: Yes normal visual inspection Chest: Chest palpation & inspection: normal inspection of the chest Resp: Auscultation: clear to auscultation bilaterally Cardio: Jugular venous distension: no JVD Rate: regular rate Rhythm: r egular rhythm Heart sounds: S1 normal heart sound present and S2 normal heart sound present GI: Inspection: Yes normal to inspection Palpation (GI): Soft to palpation, nontender and No hepatosplenomegaly present Auscultation: normal bowel sounds : General: Yes no CVA tenderness Back/Spine/Pelvis: Back: no CVA tenderness Skin: General skin exam: no rashes or lesions noted Neuro: General: oriented to person and patient oriented x3 Cranial nerves: Yes CN's II-XII intact bilaterally Motor exam (neuro): 5/5 motor strength present throughout Sensory Exam: No Sensory deficit (Neuro) Extrem: General: Yes normal to inspection Psych: Appearance: grossly normal Course Reevaluation(s) Reevaluation #1: patient with atypical chest pain no ekg or chest xray findings, does not seem to be cardiac Time: 10:14 Medical Decision Making Differential Diagnosis Differential Diagnoses: The differential diagnosis associated with the presentation includes (CAD, cardiac ischemia, pneumonia, costrochondritis) Admission/Observation Consideration of admission/observation: Escalation of care including admission/observation considered (upon arrival patient considered for admission) Lab Data 07/23/23 05:46 07/23/23 05:46 Labs: Lab Results 07/23/23 Range/Units 05:46 WBC 7.8 (4.8-10.8) X10*3/uL RBC 5.88 H (4.60-5.80) X10*6/uL Hgb 16.6 (14.0-18.0) g/dl Hct 46.8 (42.0-52.0) % MCV 79.6 L (80.0-98.0) fL MCH 28.2 (27.0-33.0) pg MCHC 35.5 (31.0-36.0) g/dl RDW 12.9 (11.0-16.0) % Plt Count 196 (160-400) X10*3/uL MPV 10.1 (9.4-12.4) fL Immature Gran % (Auto) 1.9 H (0.0-0.4) % Neut % (Auto) 49.1 (45-73) % Lymph % (Auto) 35.9 (20-40) % Holt % (Auto) 10.1 (2-11) % Eos % (Auto) 2.6 (0-4) % Baso % (Auto) 0.4 (0-2) % Lymph # (Auto) 2.8 (1.2-4.9) X10*3/uL Holt # (Auto) 0.8 (0.1-1.2) X10*3/uL Eos # (Auto) 0.2 (0.0-0.4) X10*3/uL Baso # (Auto) 0.0 (0.0-0.2) X10*3/uL Abs Immat Gran (auto) 0.15 H (0.00-0.03) X10*3/uL Absolute Neuts (auto) 3.8 (2.0-8.3) x10*3/uL Absolute Nucleated RBC 0.000 (0.0-0.012) X10*3/uL Nucleated RBC % (auto) 0.0 (0.0-0.2) /100WBC Sodium 140 (135-145) mmol/L Potassium 4.2 (3.3-5.1) mmol/L Chloride 103 (96-108) mmol/L Carbon Dioxide 24 (22-29) mmol/L Anion Gap 17 (12-20) BUN 11 (9-16) mg/dL Creatinine 0.85 (0.5-1.4) mg/dL Estim Creat Clear Calc 173.5 Estimated GFR > 60 Random Glucose 113 (60-115) mg/dL Calcium 10.0 (8.4-10.2) mg/dL Troponin I High Sens < 2.7 (<3.5-35.0) ng/L Independent Interpretation I performed an independent interpretation of an: EKG (sinus 95, no st or twave changes) and Plain X-Ray (CXR: no infiltrate) Independent Historian Clinical information obtained from an independent historian. History obtained from or confirmed by: Friend Prescription Management I considered prescription management with: Antibiotic (no pneumonia seen on xray) Chronic Conditions Patient?s care impacted by: Other (asthma) Discharge Plan Discharge Clinical Impression: Atypical chest pain Patient Disposition: Home, Self-Care Instructions: Chest Pain (ED) Additional Instructions: may take tylenol or motrin for pain Prescriptions: No Action benzonatate 100 mg capsule 100 mg PO BID PRN (Reason: cough) 7 Days Qty: 14 0RF prednisone 20 mg tablet 20 mg PO DAILY 7 Days Qty: 7 0RF albuterol sulfate [Ventolin HFA] 90 mcg/actuation HFA aerosol inhaler 1 inh inhalation QID PRN (Reason: shortness of breath or wheezing) Qty: 8.5 0RF ibuprofen 600 mg tablet 600 mg PO Q6H PRN (Reason: fever or pain) Qty: 30 0RF prednisone 20 mg tablet 40 mg PO DAILY 5 Days Qty: 10 0RF benzonatate 100 mg capsule 100 mg PO TID PRN (Reason: cough) Qty: 14 0RF prednisone 20 mg tablet 40 mg PO DAILY Qty: 10 0RF cefuroxime axetil 500 mg tablet 500 mg PO BID 10 Days Qty: 20 0RF codeine-guaifenesin 10-100 mg/5 mL liquid 10 ml PO Q6H PRN (Reason: cough) Qty: 237 0RF Referrals: Physician,Unknown J [Primary Care Provider] - 5 days Print Language: Arabic
[2023-07-23 10:39] VITALS: BP 135/91; PULSE 94; RESP 18; TEMP 36.4; O2SAT 97
== END 2023-07-23 10:39 | disposition home or self-care (01) ==
PROVIDERS: Emergency Provider Emergency Medicine
DX: R07.9 Chest pain, unspecified (principal)
CPT/HCPCS: 36415; 71046; 80048; 84484; 85025; 93005; 99283

== ENCOUNTER → 2023-07-23 05:34 | Outpatient (BNV) | payer OTHER, SELFPAY | PROVIDERS: Emergency Provider Emergency Medicine; Visit Provider Internal Medicine Cardiovascular Disease | DX: R07.9 Chest pain, unspecified (principal) | CPT/HCPCS: 93010 ==

== ENCOUNTER 2023-10-20 22:55 | Emergency (ER) | payer MEDICAID, SELFPAY ==
[2023-10-21 00:32] VITALS: BP 142/79; PULSE 92; RESP 20; TEMP 37.1; O2SAT 96; BMI 49.5
--- NOTE | 2023-10-21 00:32 | MHC.EDTECH ---
Patient brought into triage area,covid/strep obtained and sent to lab.
[2023-10-21 00:44] LABS: COVID-19 Test Positive (Negative); IDNOW Serial# 08D9AD1C; IDNOW Serial# 152EDE1D; Strep A Nucleic Acid Negative (Negative)
--- NOTE | 2023-10-21 02:10 | ED_ITS ---
HPI - General Adult General Chief complaint: General Medical Stated complaint: cold symptoms Time Seen by Provider: 10/21/23 02:07 Source: patient Mode of arrival: ambulatory Limitations: no limitations History of Present Illness ED Provider: LAVON MICHAEL narrative: 33 yo male with PMH of asthma fully vaccinated against COVID here with c/o sore throat, cough and not feeling well for 5 days works as [employer] at [employer]. He also notes his friend has similar illness. He denies travel. No CP/SOB. MD complaint: URI Onset (ago): day(s) (5) Location: mouth Radiation: non-radiation Severity: moderate Pain Consistency: intermittent Relieving factors: none Exacerbating factors: other (swallowing) Associated symptoms: cough, headaches and other (sore throat) Treatments prior to arrival: none Related Data Previous Rx's ?Medication ?Instructions ?Recorded albuterol sulfate 90 mcg/actuation 1 inh inhalation QID PRN shortness 03/27/22 aerosol inhaler (Ventolin HFA) of breath or wheezing #8.5 grams benzonatate 100 mg capsule 100 mg PO BID PRN cough 7 days #14 03/27/22 caps prednisone 20 mg tablet 20 mg PO DAILY 7 days #7 tabs 03/27/22 ibuprofen 600 mg tablet 600 mg PO Q6H PRN fever or pain 12/29/22 #30 tabs benzonatate 100 mg capsule 100 mg PO TID PRN cough #14 caps 01/25/23 prednisone 20 mg tablet 40 mg (2 x 20 mg) PO DAILY 5 days 01/25/23 #10 tabs cefuroxime axetil 500 mg tablet 500 mg PO BID 10 days #20 tabs 01/29/23 codeine 10 mg-guaifenesin 100 mg/5 10 ml PO Q6H PRN cough #237 mL 01/29/23 mL oral liquid prednisone 20 mg tablet 40 mg (2 x 20 mg) PO DAILY #10 tabs 01/29/23 Allergies Allergy/AdvReac Type Severity Reaction Status Date / Time shellfish derived Allergy Anaphylaxis Verified 10/21/23 00:33 Review of Systems Review of Systems: Constitutional : No Fever, pos Chills, No Fatigue ENT/Mouth : pos sore throat, No Rhinorrhea Eyes: No Eye Pain, No Swelling, No Redness Cardiovascular : No Chest Pain, No SOB, No Dyspnea on Exertion Respiratory : pos Cough, No Sputum Gastrointestinal : No Nausea, No Vomiting, No Diarrhea, No abdominal Pain Genitourinary : No Dysuria, No Urinary Frequency, No Hematuria, Musculoskeletal : No joint pain, No Myalgias, No Joint Swelling Skin : No Skin Lesions, No rash Neuro : No Weakness, No Numbness, No Dizziness, positive Headache All other systems reviewed and are negative PMFSH Past Medical History Attestation statement: The following information was validated with the patient. Source: old records reviewed Medical History (Updated 10/21/23 @ 02:17 by Rebeka Carrera DO) Asthma Social History Social History (Updated 10/21/23 @ 02:17 by Rebeka Carrera DO) Patient Tobacco Use Status: Never used Tobacco Physical Exam ED Vital Signs: Vital Signs - 24 hr 10/21/23 00:32 Temperature 98.8 F Pulse Rate 92 Respiratory Rate 20 Blood Pressure 142/79 H Pulse Oximetry 96 Oxygen Delivery Method Room Air BMI result Body Mass Index 49.5 Appearance: Alert. Oriented X3. No acute distress. Eyes: Pupils equal, round and reactive to light. ENT: Pharynx normal. Neck: Normal inspection. Neck supple. CVS: Normal heart rate and rhythm. Pulses normal. Respiratory: No respiratory distress. Breath sounds normal. Abdomen: Soft and non-tender. Skin: Skin warm and dry. Normal skin color. Extremities: No lower extremity edema. Neuro: Oriented X 3. No motor deficit. No sensory deficit. Medical Decision Making Medical Decision Making [facility] Narrative: 33 yo male with PMH of asthma here with URI symptoms at this time he is not t oxic, no hypoxia and is well hydrated suspect viral syndrome throat not consistent with strep no signs of [employer] or abscess. Will obtain COVID panel Differential Diagnosis Differential Diagnoses: The differential diagnosis associated with the presentation includes viral syndrome, COVID Admission/Observation Consideration of admission/observation: Escalation of care including admission/observation considered not toxic, no hypoxia well hydrated stable for DC Lab Data [facility] Lab Attestation statement: I reviewed the patient's lab results. Labs: Lab Results 10/21/23 Range/Units 00:29 COVID-19 ([facility]) Positive A (Negative) COVID-19 Clin Com See Note S. pyogenes GrpA SALLIE Negative (Negative) External Record Review External record reviewed: Outpatient record Prescription Management I considered prescription management with: Other Discharge Plan Discharge Clinical Impression: COVID-19, Acute viral pharyngitis Patient Disposition: Home, Self-Care Instructions: Pharyngitis (ED), COVID-19 (Coronavirus Disease 2019) (ED) Additional Instructions: monitor your breathing return for worsening symptoms such as severe chest pain, increased work of breathing or if you feel so short of breath you cannot walk to your own bathroom wear a mask protect others Prescriptions: No Action benzonatate 100 mg capsule 100 mg PO BID PRN (Reason: cough) 7 Days Qty: 14 0RF prednisone 20 mg tablet 20 mg PO DAILY 7 Days Qty: 7 0RF albuterol sulfate [Ventolin HFA] 90 mcg/actuation HFA aerosol inhaler 1 inh inhalation QID PRN (Reason: shortness of breath or wheezing) Qty: 8.5 0RF ibuprofen 600 mg tablet 600 mg PO Q6H PRN (Reason: fever or pain) Qty: 30 0RF prednisone 20 mg tablet 40 mg PO DAILY 5 Days Qty: 10 0RF benzonatate 100 mg capsule 100 mg PO TID PRN (Reason: cough) Qty: 14 0RF prednisone 20 mg tablet 40 mg PO DAILY Qty: 10 0RF cefuroxime axetil 500 mg tablet 500 mg PO BID 10 Days Qty: 20 0RF codeine-guaifenesin 10-100 mg/5 mL liquid 10 ml PO Q6H PRN (Reason: cough) Qty: 237 0RF Stand Alone Forms: Work/School Release Print Language: Georgian
[2023-10-21 02:35] VITALS: BP 142/79; PULSE 92; RESP 20; TEMP 37.1; O2SAT 96
== END 2023-10-21 02:37 | disposition home or self-care (01) ==
PROVIDERS: Emergency Provider Emergency Medicine; PCP Family Medicine
DX: U07.1 COVID-19 (principal); J02.9 Acute pharyngitis, unspecified; R05.9 Cough, unspecified; R51.9 Headache, unspecified; R13.10 Dysphagia, unspecified
CPT/HCPCS: 87635; 87651; 99282; 99283

== ENCOUNTER 2023-12-23 08:55 | Emergency (ER) | payer MEDICAID, SELFPAY ==
--- NOTE | ~2023-12-23 | XR_ITS ---
EXAMINATION: XR CHEST 2 VIEW CLINICAL INFORMATION: Productive cough and chest wall pain COMPARISON: 07/23/2023 TECHNIQUE: PA and lateral views of the chest obtained. FINDINGS: The lungs are clear. There are no pleural effusions. The cardiomediastinal silhouette is normal. XR/XR chest 2V IMPRESSION: No acute cardiopulmonary disease. Electronically signed by: Charles De Oliveira MD 12/23/2023 11:15 AM EDT
[2023-12-23 09:17] VITALS: BP 140/71; PULSE 103; RESP 18; TEMP 36.9; O2SAT 95; BMI 34.5
--- NOTE | 2023-12-23 09:42 | ED_ITS ---
HPI - URI/Sore Throat General Chief Complaint: Upper Respiratory Symptoms Stated Complaint: Sore throat, cough Time Seen by Provider: 12/23/23 09:38 Source: patient Mode of arrival: ambulatory Limitations: no limitations History of Present Illness HPI Narrative: This is a 33 years old male presented to the emergency department with complaint of cough congestion for about 3 days. Denies any fever any vomiting. MD elicited complaint: cough Pertinent past history: asthma Onset (ago): day(s) (3) Consistency: constant Severity: moderate Description of mucous: clear Able to tolerate fluids by mouth: Yes Exacerbating factors: nothing Relieving factors: nothing Associated symptoms: denies other symptoms Related Data Previous Rx's ?Medication ?Instructions ?Recorded albuterol sulfate 90 mcg/actuation 1 inh inhalation QID PRN shortness 03/27/22 aerosol inhaler (Ventolin HFA) of breath or wheezing #8.5 grams benzonatate 100 mg capsule 100 mg PO BID PRN cough 7 days #14 03/27/22 caps prednisone 20 mg tablet 20 mg PO DAILY 7 days #7 tabs 03/27/22 ibuprofen 600 mg tablet 600 mg PO Q6H PRN fever or pain 12/29/22 #30 tabs benzonatate 100 mg capsule 100 mg PO TID PRN cough #14 caps 01/25/23 prednisone 20 mg tablet 40 mg (2 x 20 mg) PO DAILY 5 days 01/25/23 #10 tabs cefuroxime axetil 500 mg tablet 500 mg PO BID 10 days #20 tabs 01/29/23 codeine 10 mg-guaifenesin 100 mg/5 10 ml PO Q6H PRN cough #237 mL 01/29/23 mL oral liquid prednisone 20 mg tablet 40 mg (2 x 20 mg) PO DAILY #10 tabs 01/29/23 doxycycline monohydrate 100 mg 100 mg PO BID #14 caps 12/23/23 capsule (Monodox) prednisone 20 mg tablet 60 mg (3 x 20 mg) PO DAILY #12 tabs 12/23/23 Allergies Allergy/AdvReac Type Severity Reaction Status Date / Time shellfish derived Allergy Anaphylaxis Verified 12/23/23 09:18 Review of Systems Cardiovascular: Cardiovascular: Reports no additional cardiovascular complaints Respiratory: Respiratory: Reports cough Gastrointestinal: Gastrointestinal: Reports no additional gastrointestinal complaints [facility] Past Medical History Attestation statement: The following information was validated with the patient. [facility] Narrative: ASTMA Medical History Asthma Social History Social History Patient Tobacco Use Status: Never used Tobacco Smoked in Last 30 Days: No Use of substances other than those prescribed or required for medical reasons: No Advance Directives: No Advance Directives Information Provided: Yes Do you have a plan to hurt others: No Plan Physical Exam Vital Signs: Vital Signs: Last Vital Signs Temp 98.5 F 12/23/23 11:52 Pulse 103 H 12/23/23 11:52 Resp 18 12/23/23 11:52 BP 140/71 H 12/23/23 11:52 Pulse Ox 95 12/23/23 11:52 O2 Del Method Room Air 12/23/23 11:52 BMI result Body Mass Index 34.5 Const: General: cooperative, comfortable, no acute distress, well developed, alert and awake Nutritional Appearance: well nourished Orientation/consciousness: patient oriented x3 HEENT: Head: Yes normal to inspection Face and sinus: Yes normal facial exam Neck: Neck: Yes normal visual inspection Chest: Chest palpation & inspection: normal inspection of the chest Resp: Effort & Inspection: normal respiratory effort Auscultation: clear to auscultation bilaterally Cardio: Jugular venous distension: no JVD Rate: regular rate Rhythm: regular rhythm GI: Inspection: Yes normal to inspection Palpation (GI): Soft to palpation Percussion: Yes normal to percussion Skin: General skin exam: no rashes or lesions noted Lesions: no lesions Rashes: no rashes Neuro: General: patient oriented x3 Cranial nerves: Yes CN's II-XII intact bilaterally Course Course Course Narrative: Chest x-ray was negative for pneumonia sat was good strep test was negative I will treat him empirically for bronchitis with prednisone and doxycycline he is very comfortable with the plan of care Medical Decision Making Medical Decision Making MDM Narrative: PATIENT PRESENTED TO THE ED WITH COUGH CONGESTION WILL OBTAIN CHEST X-RAY REASSESS Differential Diagnosis Differential Diagnoses: The differential diagnosis associated with the presentation includes BRONCHITIS/PNEUMONIA/ASTHMA EXACERBATION Admission/Observation Consideration of admission/observation: Escalation of care including admission/observation considered Lab Data [facility] Lab Attestation statement: I reviewed the patient's lab results. Labs: Lab Results 12/23/23 Range/Units 09:29 Influenza Type A (PCR) NEGATIVE (Negative) Influenza Type B (PCR) NEGATIVE (Negative) RSV RNA Qual (PCR) NEGATIVE (Negative) SARS-CoV-2 RNA (RT-PCR) NEGATIVE (Negative) S. pyogenes GrpA SALLIE Negative (Negative) Independent Interpretation I performed an independent interpretation of an: Plain X-Ray Interpretation: Chest x-ray reviewed interpreted by me as normal Discharge Plan Discharge Clinical Impression: Bronchitis Patient Disposition: Home, Self-Care Instructions: Acute Bronchitis (ED) Additional Instructions: Follow-up with your primary care physician return to the emergency room if you are worse Prescriptions: New doxycycline monohydrate [Monodox] 100 mg capsule 100 mg PO BID Qty: 14 0RF prednisone 20 mg tablet 60 mg PO DAILY Qty: 12 0RF No Action benzonatate 100 mg capsule 100 mg PO BID PRN (Reason: cough) 7 Days Qty: 14 0RF prednisone 20 mg tablet 20 mg PO DAILY 7 Days Qty: 7 0RF albuterol sulfate [Ventolin HFA] 90 mcg/actuation HFA aerosol inhaler 1 inh inhalation QID PRN (Reason: shortness of breath or wheezing) Qty: 8.5 0RF ibuprofen 600 mg tablet 600 mg PO Q6H PRN (Reason: fever or pain) Qty: 30 0RF prednisone 20 mg tablet 40 mg PO DAILY 5 Days Qty: 10 0RF benzonatate 100 mg capsule 100 mg PO TID PRN (Reason: cough) Qty: 14 0RF prednisone 20 mg tablet 40 mg PO DAILY Qty: 10 0RF cefuroxime axetil 500 mg tablet 500 mg PO BID 10 Days Qty: 20 0RF codeine-guaifenesin 10-100 mg/5 mL liquid 10 ml PO Q6H PRN (Reason: cough) Qty: 237 0RF Referrals: Physician,Unknown J [Primary Care Provider] - 2 days Stand Alone Forms: Work/School Release Interventions: ED Discharge Assessment Last Done: 12/23/23 11:52 Discharge Date/Time: 12/23/23 11:53 Print Language: Divehi
[2023-12-23 09:53] LABS: IDNOW Serial# 08D9AD1C; Strep A Nucleic Acid Negative (Negative)
[2023-12-23 10:34] LABS: Influenza A PCR NEGATIVE (Negative); Influenza B PCR NEGATIVE (Negative); Resp Syncy Virus RNA Qual PCR NEGATIVE (Negative); SARS COV2 PCR INHOUSE NEGATIVE (Negative)
[2023-12-23 11:52] VITALS: BP 140/71; PULSE 103; RESP 18; TEMP 36.9; O2SAT 95
== END 2023-12-23 11:53 | disposition home or self-care (01) ==
PROVIDERS: Emergency Provider Emergency Medicine
DX: J40 Bronchitis, not specified as acute or chronic (principal); J02.9 Acute pharyngitis, unspecified; R05.9 Cough, unspecified; Z03.818 Encounter for observation for suspected exposure to other biological agents ruled out
CPT/HCPCS: 0241U; 71046; 87651; 99283; 99284

== ENCOUNTER 2024-03-20 02:38 | Emergency (ER) | payer MEDICAID, SELFPAY ==
--- NOTE | ~2024-03-20 | XR_ITS ---
CLINICAL HISTORY: cough, reoccurent bronchitis 1 view chest x-ray Comparison: CR/SR - XR CHEST 2V - 12/23/23 10:02 EDT Findings: Lungs are well inflated. Cardiac silhouette is within normal limits. No focal areas of consolidation. No pleural effusion or pneumothorax. IMPRESSION: 1. No acute infiltrate. This document has been electronically signed by: Richard Caballero MD on 03/20/2024 03:51:45
[2024-03-20 02:48] VITALS: BP 137/82; PULSE 77; RESP 16; TEMP 35.8; O2SAT 95; BMI 44.6
[2024-03-20 03:39] LABS: Influenza A PCR NEGATIVE (Negative); Influenza B PCR NEGATIVE (Negative); Resp Syncy Virus RNA Qual PCR NEGATIVE (Negative); SARS COV2 PCR INHOUSE NEGATIVE (Negative)
--- NOTE | 2024-03-20 03:58 | ED.GENADULT ---
HPI - General Adult General Chief complaint: Upper Respiratory Symptoms Stated complaint: coughing Time Seen by Provider: 03/20/24 03:53 Source: patient Mode of arrival: ambulatory Limitations: no limitations History of Present Illness ED Provider: Dr. Makayla Morgan HPI narrative: Patient comes to the emergency room complaining of dry cough for couple of days. Denies chest pain or shortness of breath. Patient states that he has history of asthma but has not had any acute exacerbations. The patient states that every year around the same time of the year he gets asthma exacerbations and bronchitis Related Data Previous Rx's ?Medication ?Instructions ?Recorded albuterol sulfate 90 mcg/actuation 1 inh inhalation QID PRN shortness 03/27/22 aerosol inhaler (Ventolin HFA) of breath or wheezing #8.5 grams benzonatate 100 mg capsule 100 mg PO BID PRN cough 7 days #14 03/27/22 caps prednisone 20 mg tablet 20 mg PO DAILY 7 days #7 tabs 03/27/22 ibuprofen 600 mg tablet 600 mg PO Q6H PRN fever or pain 12/29/22 #30 tabs benzonatate 100 mg capsule 100 mg PO TID PRN cough #14 caps 01/25/23 prednisone 20 mg tablet 40 mg (2 x 20 mg) PO DAILY 5 days 01/25/23 #10 tabs cefuroxime axetil 500 mg tablet 500 mg PO BID 10 days #20 tabs 01/29/23 codeine 10 mg-guaifenesin 100 mg/5 10 ml PO Q6H PRN cough #237 mL 01/29/23 mL oral liquid prednisone 20 mg tablet 40 mg (2 x 20 mg) PO DAILY #10 tabs 01/29/23 doxycycline monohydrate 100 mg 100 mg PO BID #14 caps 12/23/23 capsule (Monodox) prednisone 20 mg tablet 60 mg (3 x 20 mg) PO DAILY #12 tabs 12/23/23 benzonatate 100 mg capsule 100 mg PO TID PRN cough #14 caps 03/20/24 prednisone 20 mg tablet 40 mg (2 x 20 mg) PO DAILY 4 days 03/20/24 #8 tabs Allergies Allergy/AdvReac Type Severity Reaction Status Date / Time shellfish derived Allergy Anaphylaxis Verified 03/20/24 02:51 Review of Systems Review of Systems: Constitutional : No Weight loss, No Fever, No Chills, No Night Sweats, No Fatigue, No Malaise ENT/Mouth : No Hearing loss, No Ear Pain, No Nasal Congestion, No Sinus Pain, No Hoarseness, No sore throat, No Rhinorrhea, No Swallowing Difficulty Eyes: No Eye Pain, No Swelling, No Redness, No Foreign Body, No Discharge, No Vision Changes Cardiovascular : No Chest Pain, No SOB, No Dyspnea on Exertion, No Orthopnea, No Edema, No Palpitations Respiratory : Complaining of dry cough, No Wheezing, No Smoke Exposure, No Dyspnea Gastrointestinal : No Nausea, No Vomiting, No Diarrhea, No Constipation, No abdominal Pain, No Hematochezia, No Melena Genitourinary : no irregular bleeding, No Dysuria, No Urinary Frequency, No Hematuria, No Urinary Incontinence, No Urgency, No Flank Pain, No Urinary Flow Changes, No Hesitancy Musculoskeletal : No joint pain, No Myalgias, No Joint Swelling Skin : No Skin Lesions, No rash Neuro : No Weakness, No Numbness, No Paresthesias, No Loss of Consciousness, No Dizziness, No Headache Psych : No Anxiety/Panic, No Depression, No SI/HI/AH/VH, No Social Issues, Heme/Lymph: No Bruising, No Bleeding,No Lymphadenopathy Endocrine : No Polyuria, No Polydipsia, No Temperature Intolerance PMFSH Past Medical History Medical History Asthma Social History Social History Patient Tobacco Use Status: Never used Tobacco Advance Directives: No Advance Directives Information Provided: Yes Do you have a plan to hurt others: No Plan Physical Exam ED Vital Signs: Vital Signs - 24 hr 03/20/24 02:48 Temperature 96.4 F L Pulse Rate 77 Respiratory Rate 16 Blood Pressure 137/82 Pulse Oximetry 95 Oxygen Delivery Method Room Air BMI result Body Mass Index 44.6 Const Other: Appearance: Alert. Oriented X3. No acute distress. Eyes: Pupils equal, round and reactive to light. ENT: Pharynx normal. Neck: Normal inspection. Neck supple. No lymph nodes noted. No crepitus CVS: Normal heart rate and rhythm. Pulses normal. Normal S1 and S2 Respiratory: No respiratory distress. Breath sounds normal. No Wheezing. No rales Abdomen: Soft and nontender. No rigidity. No distention. Skin: Skin warm and dry. Normal skin color. Normal skin turgor. Extremities: No lower extremity edema. No Lacerations. No Rash Neuro: Oriented X 3. No motor deficit. No sensory deficit. Moving all extremities. No slurred speech. CN 2 through 12 grossly intact Psych: calm, cooperative, normal affect Medical Decision Making Medical Decision Making MDM Narrative: My interpretation of chest x-ray: No acute abnormalities. Serology negative for COVID, RSV and influenza Patient was given p.o. prednisone. A nebulization treatment at this time, patient has good clear open airway Lab Data Labs: Lab Results 03/20/24 Range/Units 02:58 Influenza Type A (PCR) NEGATIVE (Negative) Influenza Type B (PCR) NEGATIVE (Negative) RSV RNA Qual (PCR) NEGATIVE (Negative) SARS-CoV-2 RNA (RT-PCR) NEGATIVE (Negative) Independent Interpretation I performed an independent interpretation of an: Plain X-Ray Radiology Impression Discussion of test interpretation with radiology: I have reviewed the radiologist's reading. Radiologist Impression: Lungs are well inflated. Cardiac silhouette is within normal limits. No focal areas of consolidation. No pleural effusion or pneumothorax. IMPRESSION: 1. No acute infiltrate. Discharge Plan Discharge Clinical Impression: Acute viral bronchitis Patient Disposition: Home, Self-Care Instructions: Acute Bronchitis (ED) Additional Instructions: Please follow-up with your primary care physician tomorrow. If you have any worsening or new symptoms, please return to the emergency room or call 911 Prescriptions: New prednisone 20 mg tablet 40 mg PO DAILY 4 Days Qty: 8 0RF benzonatate 100 mg capsule 100 mg PO TID PRN (Reason: cough) Qty: 14 0RF No Action benzonatate 100 mg capsule 100 mg PO BID PRN (Reason: cough) 7 Days Qty: 14 0RF prednisone 20 mg tablet 20 mg PO DAILY 7 Days Qty: 7 0RF albuterol sulfate [Ventolin HFA] 90 mcg/actuation HFA aerosol inhaler 1 inh inhalation QID PRN (Reason: shortness of breath or wheezing) Qty: 8.5 0RF ibuprofen 600 mg tablet 600 mg PO Q6H PRN (Reason: fever or pain) Qty: 30 0RF prednisone 20 mg tablet 40 mg PO DAILY 5 Days Qty: 10 0RF benzonatate 100 mg capsule 100 mg PO TID PRN (Reason: cough) Qty: 14 0RF prednisone 20 mg tablet 40 mg PO DAILY Qty: 10 0RF cefuroxime axetil 500 mg tablet 500 mg PO BID 10 Days Qty: 20 0RF codeine-guaifenesin 10-100 mg/5 mL liquid 10 ml PO Q6H PRN (Reason: cough) Qty: 237 0RF doxycycline monohydrate [Monodox] 100 mg capsule 100 mg PO BID Qty: 14 0RF prednisone 20 mg tablet 60 mg PO DAILY Qty: 12 0RF Print Language: New Zealander
[2024-03-20] MEDS: Benzonatate 100 MG CAPSULE PO (04:35)
[2024-03-20] MEDS: predniSONE 20 MG TABLET 40 MG PO (04:36)
--- NOTE | 2024-03-20 04:38 | PC.NURSE ---
no distress. speech clear/breathing easy comfortably. gait steady.
[2024-03-20 04:39] VITALS: BP 137/82; PULSE 77; RESP 16; TEMP 35.8; O2SAT 95
== END 2024-03-20 04:40 | disposition home or self-care (01) ==
PROVIDERS: Emergency Provider Emergency Medicine; PCP Family Medicine
DX: J20.8 Acute bronchitis due to other specified organisms (principal); R05.9 Cough, unspecified; J45.909 Unspecified asthma, uncomplicated; Z03.818 Encounter for observation for suspected exposure to other biological agents ruled out
CPT/HCPCS: 0241U; 71045; 99282; 99283

== ENCOUNTER → 2024-03-20 02:49 | Outpatient (BNV) | payer MEDICAID, SELFPAY | PROVIDERS: Emergency Provider Emergency Medicine; PCP Family Medicine; Visit Provider Radiology Diagnostic Radiology | DX: R05.9 Cough, unspecified (principal) | CPT/HCPCS: 71045 ==